=== PATIENT | female | born 1960 | race Caucasian/White ===

== ENCOUNTER 2018-06-07 12:49 | Emergency (ER) | payer OTHER ==
--- NOTE | 2018-06-07 14:31 | RAD ---
LEFT HAND FIFTH DIGIT THREE VIEWS: HISTORY: Pain. Smash injury. COMPARISON: None. FINDINGS: Nondisplaced tuft fracture. Joint space is preserved. IMPRESSION: Nondisplaced tuft fracture. POS: [facility]
== END 2018-06-07 13:52 | disposition home or self-care (01) ==
LOC: MADERS 12:49
DX: S62.667A Nondisplaced fracture of distal phalanx of left little finger, initial encounter for closed fracture (principal); I10 Essential (primary) hypertension; J45.909 Unspecified asthma, uncomplicated; Z79.899 Other long term (current) drug therapy; X58.XXXA Exposure to other specified factors, initial encounter

== ENCOUNTER 2018-08-08 14:54 | Emergency (ER) | payer OTHER ==
[2018-08-08] MEDS ORDERED: methylPREDNISolone Sod Succ/PF 125 MG/2 ML VIAL ONE (15:15)
[2018-08-08] MEDS ORDERED: Magnesium Sulfate 2 GM/NS 0.9% 50 ML BAG ONE (15:41)
--- NOTE | 2018-08-08 16:25 | RAD ---
CHEST ONE VIEWS: 08/08/18 HISTORY: Dyspnea. COMPARISON: None. FINDINGS: Normal cardiac silhouette. Pulmonary vessels and hilum are normal. Costophrenic angles are clear. No consolidation or mass. No pneumothorax or osseous abnormalities. IMPRESSION: No acute cardiopulmonary process. POS: [facility]
== END 2018-08-08 16:50 | disposition home or self-care (01) ==
LOC: MADERS 14:54
DX: J45.909 Unspecified asthma, uncomplicated (principal); I10 Essential (primary) hypertension; Z79.899 Other long term (current) drug therapy
CPT/HCPCS: 71045; 94644; 94760; 96365; 96375; J2930; J3475; J7620

== ENCOUNTER 2018-10-22 08:37 | Emergency (ER) | payer OTHER ==
[2018-10-22] MEDS ORDERED: predniSONE 20 MG TAB ONE (09:05)
[2018-10-22] MEDS ORDERED: Magnesium Sulfate 2 GM/NS 0.9% 50 ML BAG ONE (10:09)
--- NOTE | 2018-10-22 10:10 | RAD ---
CHEST TWO VIEWS: Indication: Shortness of breath, wheezing. Comparison: None. FINDINGS: Lungs are clear. Cardiomediastinal silhouette is within normal limits. No acute osseous abnormality i s evident. IMPRESSION: No acute cardiopulmonary abnormality. POS: [facility]
== END 2018-10-22 09:40 | disposition home or self-care (01) ==
LOC: MADERS 08:37
DX: J45.901 Unspecified asthma with (acute) exacerbation (principal); I10 Essential (primary) hypertension; Z79.899 Other long term (current) drug therapy
CPT/HCPCS: 71046; 96365; J3475; J7506; J7620

== ENCOUNTER 2019-05-13 14:23 | Emergency (ER) | payer OTHER ==
[2019-05-13] MEDS ORDERED: Albuterol Sulfate 2.5 mg/0.5 ml Neb ONE (14:40)
[2019-05-13] MEDS ORDERED: Azithromycin 500 MG VIAL ONE (14:46)
[2019-05-13] MEDS ORDERED: Sodium Chloride 0.9% 250 ML 250 ML ONE (14:46)
[2019-05-13] MEDS ORDERED: cefTRIAXone\\ROCEPHIN 1 GM VIAL ONE (14:46)
[2019-05-13] MEDS ORDERED: Magnesium 2 GM/50 ML BAG (IN WATER) ONE (14:46)
[2019-05-13] MEDS ORDERED: methylPREDNISolone Sod Succ/PF 125 MG/2 ML VIAL ONE (14:46)
[2019-05-13] MEDS ORDERED: Sodium Chloride 0.9% 100 ML ONE (14:46)
--- NOTE | 2019-05-13 14:47 | RAD ---
EXAM: Chest one view: HISTORY: Dyspnea COMPARISON: 04/01/2019 FINDINGS: Mild bilateral vascular congestion. Heart size: Within normal limits. Lungs: Clear of acute process. No evidence for pneumonia, pleural effusion, acute edema, or pneumothorax, or other significant acute process. IMPRESSION: No significant acute intrathoracic disease.
[2019-05-13 15:04] LABS: #Basophils 0.1 thou/uL (0.0-0.2); #Eosinphils 0.2 thou/uL (0.0-0.7); #Lymphocytes 2.1 thou/uL (1.20-3.40); #Monocytes 0.6 thou/uL (0.11-0.59); #Neutrophils 4.3 thou/uL (1.40-6.50); %Basophils 1.7 % (0.0-1.0); %Lymphocytes 28.8 % (21.0-51.0); %Neutrophils 58.5 % (42.0-75.0); Hemoglobin 11.7 g/dL (12.0-16.0); Mean Corpuscular HGB CONC 32.7 g/dL (32.0-36.0); Mean Corpuscular Hemoglobin 28.4 pg (27.0-31.0); Mean Corpuscular Volume 86.9 fL (78.0-98.0); Mean Platelet Volume 7.3 fL (7.4-10.4); Platelet Count 283 thou/uL (130-400); RBC Distribution Width 12.3 % (11.5-14.5); Red Blood Cell (RBC) Count 4.11 mill/uL (4.20-5.40); White Blood Cell (WBC) Count 7.3 thou/uL (4.8-10.8)
[2019-05-13 15:22] LABS: ALT (SGPT) 32 U/L (8-55); AST (SGOT) 31 U/L (5-34); Albumin 3.8 g/dL (3.5-5.0); Alkaline Phosphatase 51 U/L (40-150); Anion Gap 14 mmol/L (10-20); BUN (Urea Nitrogen) 14 mg/dL (9.8-20.1); Bilirubin, Total 0.3 mg/dL (0.2-1.2); CK (CPK) 108 U/L (29-168); Calc. Creatinine Clearance 0 mL/min (70-130); Calcium 8.5 mg/dL (7.8-10.44); Carbon Dioxide 26 mmol/L (22-29); Chloride 105 mmol/L (98-107); Estimated GFR-MDRD 71; Globulin 2.1 g/dL (2.4-3.5); Glucose 95 mg/dL (70-105); Potassium 3.5 mmol/L (3.5-5.1); Protein, Total 5.9 g/dL (6.0-8.3); Sodium 141 mmol/L (136-145)
== END 2019-05-13 15:21 | disposition short-term general hospital (02) ==
LOC: MADERS 14:23
DX: J96.90 Respiratory failure, unspecified, unspecified whether with hypoxia or hypercapnia (principal); J45.901 Unspecified asthma with (acute) exacerbation; I10 Essential (primary) hypertension; Z79.899 Other long term (current) drug therapy; Z79.51 Long term (current) use of inhaled steroids
CPT/HCPCS: 71045; 80053; 82550; 83605; 84484; 85025; 93005; 94640; 94660; 96365; 96375; J0456; J0696; J2930; J3475; J3490; J7050; J7611; J7620

== ENCOUNTER 2019-06-05 16:20 | Outpatient (CLI) | payer OTHER ==
--- NOTE | 2019-06-05 16:47 | RAD ---
XR Foot Rt 3 View STANDARD History: Foot pain Comparison: None. Findings: No acute fracture or malalignment. Lisfranc interval appears been maintained. Moderate size plantar and dorsal calcaneal spurs. Moderate soft tissue swelling of the midfoot. Impression: 1. No acute fracture or malalignment. 2. Moderate dorsal and plantar calcaneal spurs. 3. Mild midfoot soft tissue swelling.
--- NOTE | 2019-06-05 16:48 | RAD ---
Exam: XR Heel Rt 2 View STANDARD HISTORY: Right foot and heel pain for 6 months COMPARISON: None FINDINGS: Posterior and plantar calcaneal enthesophytes are identified. No acute fracture, dislocation, or other acute osseous abnormality is identified. IMPRESSION: No acute osseous abnormality is identified.
== END 2019-06-05 16:21 | disposition home or self-care (01) ==
LOC: MADRAD 16:20
PROVIDERS: ATTEND Emergency Medicine
DX: M79.671 Pain in right foot (principal); M77.31 Calcaneal spur, right foot; M79.89 Other specified soft tissue disorders

== ENCOUNTER 2019-06-09 18:13 | Emergency (ER) | payer OTHER ==
[2019-06-09] MEDS ORDERED: methylPREDNISolone Sod Succ/PF 125 MG/2 ML VIAL ONE (18:24)
[2019-06-09 18:35] LABS: #Basophils 0.1 thou/uL (0.0-0.2); #Eosinphils 0.3 thou/uL (0.0-0.7); #Lymphocytes 3.1 thou/uL (1.20-3.40); #Monocytes 0.6 thou/uL (0.11-0.59); #Neutrophils 4.9 thou/uL (1.40-6.50); %Basophils 1.1 % (0.0-1.0); %Eosinophils 3.5 % (0.0-10.0); %Monocytes 7.1 % (0.0-10.0); %Neutrophils 54.3 % (42.0-75.0); Mean Corpuscular HGB CONC 32.9 g/dL (32.0-36.0); Mean Corpuscular Hemoglobin 28.5 pg (27.0-31.0); Mean Corpuscular Volume 86.6 fL (78.0-98.0); Mean Platelet Volume 6.7 fL (7.4-10.4); Platelet Count 311 thou/uL (130-400); RBC Distribution Width 12.4 % (11.5-14.5); Red Blood Cell (RBC) Count 4.21 mill/uL (4.20-5.40)
[2019-06-09] MEDS ORDERED: Albuterol Sulfate 2.5 mg/3 ml Neb ONE (18:48)
[2019-06-09 18:49] LABS: ALT (SGPT) 22 U/L (8-55); AST (SGOT) 16 U/L (5-34); Albumin 3.9 g/dL (3.5-5.0); Alkaline Phosphatase 53 U/L (40-150); Anion Gap 15 mmol/L (10-20); BUN (Urea Nitrogen) 16 mg/dL (9.8-20.1); Bilirubin, Total 0.2 mg/dL (0.2-1.2); Calc. Creatinine Clearance 0 mL/min (70-130); Carbon Dioxide 25 mmol/L (22-29); Chloride 106 mmol/L (98-107); Estimated GFR-MDRD 47; Globulin 2.1 g/dL (2.4-3.5); Glucose 99 mg/dL (70-105); Potassium 3.6 mmol/L (3.5-5.1); Sodium 142 mmol/L (136-145)
--- NOTE | 2019-06-09 19:25 | RAD ---
CHEST ONE VIEW: History: Dyspnea. Comparison: 05-13-19 FINDINGS: Normal cardiac silhouette. Lungs and pleural spaces are clear. No pneumothorax or osseous abnormality . IMPRESSION: No acute cardiopulmonary process. No significant interval change. POS: [facility]
== END 2019-06-09 20:05 | disposition home or self-care (01) ==
LOC: MADERS 18:13
DX: J45.901 Unspecified asthma with (acute) exacerbation (principal); I10 Essential (primary) hypertension; Z79.899 Other long term (current) drug therapy; Z79.52 Long term (current) use of systemic steroids; Z79.51 Long term (current) use of inhaled steroids
CPT/HCPCS: 71045; 80053; 83880; 84484; 85025; 93005; 94760; 96374; J2930; J7611; J7620

== ENCOUNTER 2019-06-27 12:44 | Emergency (ER) | payer OTHER ==
[2019-06-27] MEDS ORDERED: methylPREDNISolone Sod Succ/PF 125 MG/2 ML VIAL ONE (13:09)
--- NOTE | 2019-06-27 13:34 | RAD ---
PORTABLE CHEST: HISTORY: Dyspnea. COMPARISON: 06/09/2019 exam. FINDINGS: Heart size and mediastinum are within normal limits. The lungs are clear of infiltrates. No signifi cant bony findings. IMPRESSION: No active intrathoracic disease. POS: [facility]
[2019-06-27 13:35] LABS: #Basophils 0.1 thou/uL (0.0-0.2); #Eosinphils 0.5 thou/uL (0.0-0.7); #Lymphocytes 2.7 thou/uL (1.20-3.40); #Monocytes 0.4 thou/uL (0.11-0.59); #Neutrophils 5.7 thou/uL (1.40-6.50); %Basophils 1.2 % (0.0-1.0); %Eosinophils 4.9 % (0.0-10.0); %Lymphocytes 28.9 % (21.0-51.0); Hemoglobin 13.1 g/dL (12.0-16.0); Mean Corpuscular HGB CONC 32.7 g/dL (32.0-36.0); Mean Corpuscular Hemoglobin 28.4 pg (27.0-31.0); Mean Corpuscular Volume 86.6 fL (78.0-98.0); Mean Platelet Volume 7.3 fL (7.4-10.4); Platelet Count 329 thou/uL (130-400); RBC Distribution Width 12.5 % (11.5-14.5); Red Blood Cell (RBC) Count 4.61 mill/uL (4.20-5.40); White Blood Cell (WBC) Count 9.3 thou/uL (4.8-10.8)
[2019-06-27 13:49] LABS: ALT (SGPT) 21 U/L (8-55); AST (SGOT) 15 U/L (5-34); Albumin 3.9 g/dL (3.5-5.0); Alkaline Phosphatase 49 U/L (40-110); Anion Gap 14 mmol/L (10-20); BUN (Urea Nitrogen) 14 mg/dL (9.8-20.1); Bilirubin, Total 0.4 mg/dL (0.2-1.2); Calc. Creatinine Clearance 0 mL/min (70-130); Calcium 8.8 mg/dL (7.8-10.44); Carbon Dioxide 28 mmol/L (22-29); Chloride 103 mmol/L (98-107); Estimated GFR-MDRD 66; Globulin 2.2 g/dL (2.4-3.5); Glucose 137 mg/dL (70-105); Potassium 3.4 mmol/L (3.5-5.1); Protein, Total 6.1 g/dL (6.0-8.3); Sodium 142 mmol/L (136-145)
[2019-06-27] MEDS ORDERED: Albuterol Sulfate 2.5 mg/0.5 ml Neb ONE (13:55)
[2019-06-27] MEDS ORDERED: diphenhydrAMINE 50 MG/ML VIAL ONE (14:07)
== END 2019-06-27 16:10 | disposition home or self-care (01) ==
LOC: MADERS 12:44
DX: J45.901 Unspecified asthma with (acute) exacerbation (principal); I10 Essential (primary) hypertension; Z79.899 Other long term (current) drug therapy; Z79.51 Long term (current) use of inhaled steroids; Z79.52 Long term (current) use of systemic steroids
CPT/HCPCS: 71045; 80053; 83605; 83880; 84484; 85025; 93005; 96374; 96375; J1200; J2930; J7611; J7620